=== PATIENT | female | born 1995 | race Caucasian/White ===

== ENCOUNTER → 2025-03-27 10:56 | Outpatient (REF) | payer OTHER, SELFPAY | LOC: PAVMRI 10:56 | PROVIDERS: ATTENDING PHYSICIAN Surgery; FAMILY PHYSICIAN Family Medicine | DX: R22.41 Localized swelling, mass and lump, right lower limb (principal); R22.42 Localized swelling, mass and lump, left lower limb | CPT/HCPCS: 72197; A9575 ==